=== PATIENT | male | born 2000 | race Caucasian/White ===

== ENCOUNTER 2020-10-12 14:38 | Emergency (ER) | payer BC ==
[~2020-10-12] VITALS: Ht 182.9 cm; Wt 68.2 kg
[2020-10-12 14:47] VITALS: TEMP 99
[2020-10-12] MEDS ORDERED: LEXAPRO 10MG10 MG PO (14:50)
[2020-10-12] MEDS ORDERED: CLARITIN 1010 MG/TAB PO (14:50)
[2020-10-12] MEDS ORDERED: WELLBUTRIN XL150 MG PO (14:51)
[2020-10-12 15:14] LABS: BASO % 0.6 % (0.0-2.0); EOS % 0.3 % (0-4.0); GRAN # 4.6 (1.4-6.5); GRAN % 71.7 % (42.2-75.2); HEMOGLOBIN 14.3 g/dl (13.5-18.0); LYMPH # 1.1 (1.2-3.4); LYMPH % 17.7 % (20.0-51.0); MEAN CELL VOLUME 88 fl (80.0-100.0); MEAN CORPUSCULAR HEMOGLOBIN 30 pg (27.0-31.0); MEAN CORPUSCULAR HGB CONC 34 g/dl (33.0-37.0); MEAN PLATELET VOLUME 10.8 fl (7.4-10.4); MONO # 0.6 (0.1-0.6); MONO % 9.2 % (1.7-9.3); PLATELET COUNT 180 K/mm3 (130-400); RED BLOOD COUNT 4.75 M/mm3 (4.20-5.60); REDCELL DISTRIBUTION WIDTH-CV 11.6 % (11.5-14.5)
[2020-10-12 15:22] LABS: ALBUMIN 4.8 gm/dL (3.5-5.0); BILIRUBIN,TOTAL 0.5 mg/dL (0.0-1.0); CALCIUM 9.5 mg/dL (8.4-10.2); CREATININE, serum 0.68 (0.66-1.25); POTASSIUM 3.5 mmol/L (3.4-5.0); TOTAL PROTEIN 8.4 gm/dL (6.4-8.2)
[2020-10-12 15:52] LABS: COLLECTION METHOD CLEAN CATCH
[2020-10-12 16:00] LABS: MUCOUS Present /lpf; PH 8 (5-8); SQUAMOUS EPITHELIAL 0-2 /hpf; URINE APPEARANCE Clear; URINE BACTERIA None Seen /hpf; URINE BILIRUBIN Negative (NEGATIVE); URINE BLOOD Negative (NEGATIVE); URINE COLOR Yellow; URINE GLUCOSE Negative (NEGATIVE); URINE KETONE 2+ (NEGATIVE); URINE LEUKOCYTE ESTERASE Negative (NEGATIVE); URINE NITRATE Negative (NEGATIVE); URINE PROTEIN(semi-quant) Negative (NEGATIVE); URINE UROBILINOGEN Negative (NEGATIVE)
[2020-10-12 17:30] VITALS: BP 124/70; PULSE 98
[2021-02-13] MEDS ORDERED: BRINTELLIX20 (02:06)
[2021-02-13] MEDS ORDERED: NORCO 325 MG-51 TAB PO (04:09)
[2021-02-13] MEDS ORDERED: PROTONIX 40MG T40 MG PO (04:09)
== END 2020-10-12 17:50 | disposition home or self-care (01) ==
LOC: COL.ER 14:38
PROVIDERS: Physician Assistant
DX: R10.13 Epigastric pain (principal); F32.9 Major depressive disorder, single episode, unspecified; Z79.899 Other long term (current) drug therapy
CPT/HCPCS: J3010; J7030; Q9967

== ENCOUNTER 2021-02-26 08:00 | Day surgery (SDC) | payer BC ==
[~2021-02-26] VITALS: Ht 182.9 cm; Wt 69.5 kg
[~2021-02-26 08:00] MED LIST: BRINTELLIX20; CLARITIN 1010 MG/TAB PO; LEXAPRO 10MG10 MG PO; NORCO 325 MG-51 TAB PO; PROTONIX 40MG T40 MG PO; WELLBUTRIN XL150 MG PO
[2021-02-26] MEDS ORDERED: BUSPAR10 MG PO (08:33)
[2021-02-26] MEDS ORDERED: ATARAX 25MG25 MG/TAB PO (08:34)
[2021-02-26] MEDS ORDERED: ZYRTEC10MGSGL PO (08:35)
[2021-02-26 09:00] VITALS: BP 106/72; PULSE 58; TEMP 97.5
[2021-02-26 09:35] VITALS: BP 101/82; PULSE 60; TEMP 97.7
[2021-02-26 09:45] VITALS: BP 111/72; PULSE 55
[2021-02-26 10:00] VITALS: BP 109/71; PULSE 47
[2021-02-26 10:15] VITALS: BP 108/65; PULSE 49
--- NOTE | 2021-02-26 10:35 | NUR ---
0935 Pt returns from endo procedure via cart and RN assist to [facility]. Pt ambulates from cart to recliner with RN assist. Monitors on and alarms set. Call light within reach. Report received from PAIGE Weathers. Pt alert and oriented. Pt requests juice and crackers. Pt denies any pain or nausea. 0950 Pt taking food and drink well. No complications noted. 1025 Discharge instructions given to pt. All questions answered to his satisfaction. Handed to pt are a thank you card and discharge information. 1035 Pt transferred out of the hospital via wheelchair and this RN assist, to private vehicle driven by pt's mom.
== END 2021-02-26 10:35 | disposition home or self-care (01) ==
LOC: SDCO 08:00
DX: K29.50 Unspecified chronic gastritis without bleeding (principal); K21.9 Gastro-esophageal reflux disease without esophagitis; J45.909 Unspecified asthma, uncomplicated; D68.51 Activated protein C resistance; F32.9 Major depressive disorder, single episode, unspecified; Z20.822 Contact with and (suspected) exposure to COVID-19; Z79.899 Other long term (current) drug therapy; Z79.891 Long term (current) use of opiate analgesic
CPT/HCPCS: J2704; J7120

== ENCOUNTER 2021-03-28 20:01 | Emergency (ER) | payer BC ==
[~2021-03-28] VITALS: Ht 182.9 cm; Wt 72.4 kg
[~2021-03-28 20:01] MED LIST changes: +ATARAX 25MG25 MG/TAB PO; +BUSPAR10 MG PO; +ZYRTEC10MGSGL PO
[2021-03-28 20:19] VITALS: TEMP 97.4
[2021-03-28] MEDS ORDERED: PERCOCET 325 MG1 TA2 PO (22:26)
[2021-03-28 22:53] VITALS: BP 123/72; PULSE 63
== END 2021-03-28 22:53 | disposition home or self-care (01) ==
LOC: COL.ER 20:01
DX: R10.10 Upper abdominal pain, unspecified (principal); M54.6 Pain in thoracic spine
CPT/HCPCS: J2270; J2550

== ENCOUNTER → 2021-07-10 | Outpatient (CLI) | payer BC ==
[~2021-07-10] MED LIST changes: +PERCOCET 325 MG1 TA2 PO
== END ==
LOC: COL.RAD 09:20
DX: R10.84 Generalized abdominal pain (principal)
CPT/HCPCS: A9537; J2805

== ENCOUNTER 2021-12-28 17:35 | Emergency (ER) | payer BC ==
[~2021-12-28] VITALS: Ht 182.9 cm; Wt 75.9 kg
[2021-12-28 17:45] VITALS: TEMP 97.5
[2021-12-28 18:28] LABS: COLLECTION METHOD CLEAN CATCH
[2021-12-28 18:31] LABS: BASO # 0.1 K/mm3 (0.0-0.2); BASO % 0.9 % (0.0-2.0); EOS # 0.3 K/mm3 (0.0-0.7); EOS % 3.9 % (0.0-4.0); GRAN # 4.6 K/mm3 (1.4-6.5); GRAN % 56.5 % (42.2-75.2); HEMATOCRIT 42.9 % (42.0-52.0); HEMOGLOBIN 14.6 g/dl (13.5-18.0); LYMPH # 2.4 K/mm3 (1.2-3.4); MEAN CELL VOLUME 87 fl (80.0-100.0); MEAN CORPUSCULAR HEMOGLOBIN 29 pg (27-31); MEAN CORPUSCULAR HGB CONC 34 g/dl (33.0-37.0); MEAN PLATELET VOLUME 10.4 fl (7.4-10.4); MONO # 0.7 K/mm3 (0.1-0.6); MONO % 8.5 % (1.7-9.3); PLATELET COUNT 243 K/mm3 (130-400); RED BLOOD COUNT 4.96 M/mm3 (4.20-5.60); REDCELL DISTRIBUTION WIDTH-CV 11.4 % (11.5-14.5)
[2021-12-28 18:37] LABS: MUCOUS Present (NOT PRESENT); PH 8 (5-8); SQUAMOUS EPITHELIAL None Seen /hpf (0-10); URINE APPEARANCE Cloudy (CLEAR/HAZY); URINE BACTERIA Rare /hpf (NONE SEEN); URINE BILIRUBIN Negative (NEGATIVE); URINE BLOOD Negative (NEGATIVE); URINE COLOR Yellow (YELLOW); URINE GLUCOSE Negative (NEGATIVE); URINE KETONE Negative (NEGATIVE); URINE LEUKOCYTE ESTERASE Negative (NEGATIVE); URINE NITRATE Negative (NEGATIVE); URINE PROTEIN(semi-quant) Negative (NEGATIVE); URINE RBC None Seen /hpf (0-2); URINE UROBILINOGEN Negative (NEGATIVE)
[2021-12-28 18:51] LABS: ALBUMIN 4.4 gm/dL (3.5-5.0); BILIRUBIN,TOTAL 0.3 mg/dL (0.2-1.2); CALCIUM 9.7 mg/dL (8.4-10.2); CREATININE, serum 0.81 mg/dL (0.72-1.25); POTASSIUM 3.9 mmol/L (3.5-4.5); TOTAL PROTEIN 7.8 gm/dL (6.2-8.1)
[2021-12-28] MEDS ORDERED: ZOFRAN ODT4 MG PO (19:20)
[2021-12-28 19:59] VITALS: BP 110/76; PULSE 60
== END 2021-12-28 19:59 | disposition home or self-care (01) ==
LOC: COL.ER 17:35
PROVIDERS: Nurse Practitioner Primary Care
DX: U07.1 COVID-19 (principal)
CPT/HCPCS: J1790; J1885; J2405; J7030

== ENCOUNTER 2022-01-27 10:26 | Day surgery (SDC) | payer BC ==
[~2022-01-27] VITALS: Ht 182.9 cm; Wt 74.0 kg
[~2022-01-27 10:26] MED LIST changes: +ZOFRAN ODT4 MG PO
[2022-01-27] MEDS ORDERED: CARAFATE 1GM1 G PO (11:17)
[2022-01-27 11:39] VITALS: BP 115/68; PULSE 61; TEMP 97.5
[2022-01-27 15:55] VITALS: BP 113/65; PULSE 71; TEMP 98.5
--- NOTE | 2022-01-27 15:55 | NUR ---
PT TO [facility] 6 PER CART FROM PACU. RECEIVED REPORT. VS OBTAINED. PT UP TO BATHROOM AND VOIDED. TOLERATING WATER. DENIES ANY NEEDS.
[2022-01-27] MEDS ORDERED: NORCO 325 MG-51 TAB PO (15:59)
[2022-01-27] MEDS ORDERED: MOTRIN 600600 MG/TAB PO (16:00)
[2022-01-27 16:10] VITALS: BP 121/64; PULSE 68
[2022-01-27 16:18] VITALS: TEMP 99.5
[2022-01-27 16:25] VITALS: BP 117/60; PULSE 61
--- NOTE | 2022-01-27 16:50 | NUR ---
1610-PT TOLERATING JUICE AND JELLO. DENIES ANY NEEDS. 1625-HYDROCODONE/ACETAMINOPHEN 5/325 GIVEN FOR PAIN. PT TRAVELING 2 HOURS HOME. 1635-IV DC'D AT THIS TIME. TOLERATED WELL. 1640-DISCHARGE EDUCATION COMPLETED WITH PT. VERBALIZED UNDERSTANDING OF HOME AND FOLLOW UP CARE. ALL QUESTIONS ANSWERED. DISCHARGE PAPERWORK GIVEN TO PT. 1650-PT OFF UNIT PER WHEELCHAIR. PT DISCHARGED TO HOME WITH FRIEND PER PERSONAL VEHICLE.
[2022-02-01] MEDS ORDERED: NORCO 325 MG-51 TAB PO (19:55)
== END 2022-01-27 16:50 | disposition home or self-care (01) ==
LOC: SDCO 10:26
DX: K80.44 Calculus of bile duct with chronic cholecystitis without obstruction (principal); K21.9 Gastro-esophageal reflux disease without esophagitis
CPT/HCPCS: J0690; J1885; J2405; J2704; J3010; J7120; Q9967

== ENCOUNTER 2022-02-11 06:00 | Day surgery (SDC) | payer BC ==
[~2022-02-11] VITALS: Ht 182.9 cm; Wt 70.3 kg
[~2022-02-11 06:00] MED LIST changes: +CARAFATE 1GM1 G PO; +MOTRIN 600600 MG/TAB PO
[2022-02-11] MEDS ORDERED: MELATONIN5 M1 PO (06:29)
[2022-02-11] MEDS ORDERED: BENTYL 20MG20 MG/TAB PO (06:30)
[2022-02-11] MEDS ORDERED: ULTRAM 50MG TAB50 MG PO (06:30)
[2022-02-11 06:39] VITALS: BP 105/80; PULSE 83; TEMP 98.6
[2022-02-11 07:48] VITALS: BP 110/74; PULSE 77; TEMP 97.5
--- NOTE | 2022-02-11 07:55 | NUR ---
0748 - PT arrives from procedure and was settled by Vashti GIBSON. Verbal report then obtained. PT provided snack and drink; oriented to room and call alfaro. PT asked for his mother to be brought into the room apon arrival. PT denies pain and nasuea. DR is awaiting Mother's arrival to speak with PT post-procedure, per PT request. Will monitor per intervals. VSS.
[2022-02-11 08:03] VITALS: BP 105/73; PULSE 69
--- NOTE | 2022-02-11 08:08 | NUR ---
0803 - [facility]. Mother was brought in from waiting room. Call alfaro remains within reach if needed. PT denies nausea; states pain, but states it is the same pre-procedureal pain and denied needing intervention. Will monitor per intervals.
[2022-02-11 08:18] VITALS: BP 106/70; PULSE 58
--- NOTE | 2022-02-11 08:23 | NUR ---
0818 - VSS. PT ambulated independently to bathroom after RN disconnected monitors; then back to the chair and monitors reapplied. Additional snack provided. Mother remains present and call alfaro remains within reach.
[2022-02-11 08:33] VITALS: BP 120/83; PULSE 73
--- NOTE | 2022-02-11 09:15 | NUR ---
0905 - IV discontinued. Catheter tip intact and pressure bandage appplied. NO redness or swelling noted. DC instructions and educational material reveiwed w/ PT who verbalized understanding and signed the realted paperwork. Questions answered to PT satisfaction. Mother left to bring car to PT entrence. PT refused RN assisstance changing into personal clothes, call alfaro remains within reach 0915 - PT dismissed from endo via wheelchair to the PT entrence by Tiffanie GIBSON. PT has DC packet and personal belongings and was transferred into the care of his mother, who is driving private car.
== END 2022-02-11 09:18 | disposition home or self-care (01) ==
LOC: SDCO 06:00
DX: K29.50 Unspecified chronic gastritis without bleeding (principal); K21.00 Gastro-esophageal reflux disease with esophagitis, without bleeding; K29.80 Duodenitis without bleeding; R19.7 Diarrhea, unspecified; K62.89 Other specified diseases of anus and rectum; K92.1 Melena; Z79.899 Other long term (current) drug therapy; K81.1 Chronic cholecystitis; D68.51 Activated protein C resistance
CPT/HCPCS: J2704; J7030